=== PATIENT | female | born 1955 | race Two or more races ===

== ENCOUNTER 2021-07-23 11:31 | Emergency (ER) | payer SELFPAY ==
[2021-07-23 12:10] VITALS: BP 133/90; PULSE 73; TEMP 98.7; BMI 36.0
[2021-07-23] MEDS ORDERED: IBUPROFEN 600 MG TABLET (FP) PO ONE ×2 (14:27→14:33)
== END 2021-07-23 15:10 | disposition home or self-care (01) ==
LOC: JER 11:31 → JERFT 11:31
DX: M25.511 Pain in right shoulder (principal); W01.0XXA Fall on same level from slipping, tripping and stumbling without subsequent striking against object, initial encounter
CPT/HCPCS: 71046-TC-FY; 73030-TC-RT-FY; 99284-25